=== PATIENT | male | born 1995 | race Two or more races ===

== ENCOUNTER 2017-12-13 06:50 | Emergency (ER) | payer SELFPAY ==
[~2017-12-13] VITALS: Ht 165.1 cm; Wt 70.3 kg
[2017-12-13 07:05] VITALS: BP 141/86
[2017-12-13 07:12] VITALS: BP 141/86
[2017-12-13] MEDS ORDERED: BACTROBAN CR1 APPLIC TOPIC (07:16)
--- NOTE | 2017-12-13 09:59 | Emergency Room Report ---
History of Present Illness General Chief Complaint: General Complaint Source: Patient Present Illness HPI 22-year-old male presents ED for evaluation. Patient notes pain near his right ear which started approximately one week ago. Notes some mild swelling. Pain is dull, 3 out of 10, nonradiating. Denies any ear pain. Denies any jaw pain. Denies any fevers or chills. Denies any tooth pain. No other aggravating relieving factors. Denies any other associated symptoms Allergies: Coded Allergies: No Known Allergies (Unverified , 11/15/13) Patient History Past Medical History: none Past Surgical History: none Pertinent Family History: none Social History: Denies: smoking, alcohol use, drug use Immunizations: UTD Reviewed Nursing Documentation: PMH: Agreed; PSxH: Agreed Nursing Documentation-PMH Past Medical History: No Stated History Review of Systems All Other Systems: negative except mentioned in HPI Physical Exam Vital Signs Date Time Temp Pulse Resp B/P (MAP) Pulse Ox O2 Delivery O2 Flow Rate FiO2 12/13/17 07:05 98.2 95 18 141/86 96 Room Air 98.2 Sp02 EP Interpretation: reviewed, normal General Appearance: no apparent distress, alert, GCS 15, non-toxic Head: normocephalic, atraumatic Eyes: bilateral eye normal inspection, bilateral eye PERRL ENT: hearing grossly normal, normal pharynx, no angioedema, normal voice Neck: full range of motion, supple/symm/no masses Respiratory: chest non-tender, lungs clear, normal breath sounds, speaking full sentences Cardiovascular #1: regular rate, rhythm, no edema Cardiovascular #2: 2+ carotid (R), 2+ carotid (L), 2+ radial (R), 2+ radial (L) , 2+ dorsalis pedis (R), 2+ dorsalis pedis (L) Gastrointestinal: normal bowel sounds, non tender, soft, non-distended, no guarding, no rebound Rectal: deferred Genitourinary: normal inspection, no CVA tenderness Musculoskeletal: back normal, gait/station normal, normal range of motion, non- tender Neurologic: alert, oriented x3, responsive, motor strength/tone normal, sensory intact, speech normal Psychiatric: judgement/insight normal, memory normal, mood/affect normal, no suicidal/homicidal ideation Reflexes: 3+ bicep (R), 3+ bicep (L), 3+ tricep (R), 3+ tricep (L), 3+ knee (R) , 3+ knee (L) Skin: other - small area of induration noted just anterior to R ear. no erythema. no fluctuance Lymphatic: no adenopathy Medical Decision Making Diagnostic Impression: Primary Impression: Folliculitis ER Course Hospital Course 22-year-old male presents ED complaining of pain and swelling close to his jaw Differential diagnoses include: Cellulitis, dermatitis, insect bite, abscess Clinical course Patient placed on stretcher. After initial history, physical exam reveals a male in no acute distress. On exam there is a site for mild induration just anterior to the right ear. Possibly an early pimple versus folliculitis. No signs of infection to jaw. No evidence of tooth infection. Ear unremarkable. Reassurance given to patient. We'll discharge with Bactroban. Diagnosis - folliclulitis stable and discharged to home with prescription for bactroban. Instructed to followup with PMD. Instructed return to ED if symptoms recur or worsen Last Vital Signs Date Time Temp Pulse Resp B/P (MAP) Pulse Ox O2 Delivery O2 Flow Rate FiO2 12/13/17 07:20 98.2 79 18 141/86 96 Room Air 98.2 Status: improved Disposition: HOME, SELF-CARE Condition: Stable Scripts Mupirocin Calcium (Bactroban) 15 Gm Cream..g. 1 APPLIC TOPIC THREE TIMES A DAY for 10 Days, #15 GM Prov: Hugo Salinas MD 12/13/17 Referrals: NOT CHOSEN [facility]/MD,REFERRING (PCP) Patient Instructions: Folliculitis Hugo Salinas MD Dec 13, 2017 09:58
== END 2017-12-13 07:20 | disposition home or self-care (01) ==
LOC: EMR 07:10
DX: L73.9 Follicular disorder, unspecified (principal)
CPT/HCPCS: 99283